=== PATIENT | female | born 1990 | race American Indian/Alaskan Native ===

== ENCOUNTER 2020-04-18 12:00 | Outpatient (CLI) | payer OTHER ==
[2020-04-18 12:39] VITALS: BP 113/60
[2020-04-18] MEDS ORDERED: LACTATED RINGERS 1,000 ML IV ONE (13:03)
[2020-04-18 13:32] LABS: Bilirubin,Urine NEG (Negative); Blood,Urine NEG (Negative); Color,Urine Yellow (Yellow); Mucus,Urine FEW /HPF; Protein,Urine <15 mg/dL mg/dL (Negative); Urobilinogen,Urine < 2.0 mg/dL (<2.0)
== END 2020-04-18 15:00 | disposition home or self-care (01) ==
LOC: TRG 12:00 → APU 12:01 → TRG 15:00
PROVIDERS: ATTEND Obstetrics & Gynecology
DX: O46.93 Antepartum hemorrhage, unspecified, third trimester (principal); Z3A.29 29 weeks gestation of pregnancy; Z87.891 Personal history of nicotine dependence
CPT/HCPCS: 59025; 81001; 96360; J7120